=== PATIENT | female | born 1975 | race African-American/Black ===

== ENCOUNTER 2023-10-23 21:53 | Emergency (ER) | payer OTHER ==
[2023-10-23] MEDS ORDERED: Ibuprofen 800 MG TAB ONE (22:50)
== END 2023-10-23 23:15 | disposition home or self-care (01) ==
LOC: NAV ERS 21:53
DX: S90.32XA Contusion of left foot, initial encounter (principal); W20.8XXA Other cause of strike by thrown, projected or falling object, initial encounter